=== PATIENT | male | born 1970 | race Caucasian/White ===

== ENCOUNTER → 2023-10-31 | Day surgery (SDC) | payer BC ==
[~2023-10-31] MED LIST: Flumazenil 0.1 MG/ML 10 ML MDV ONE; Ketamine 200 MG/20 ML MDV ONE; Lactated Ringers 1,000 ML IV SCH; Midazolam 1 MG/ML 2 ML SDV ONE; Propofol 200 MG/20 ML SDV ONE; fentaNYL 50 MCG/ML SDV ONE
== END ==
LOC: CC.SDS 09:35
PROVIDERS: ATTEND Family Medicine
DX: K92.1 Melena (principal); K64.4 Residual hemorrhoidal skin tags; K21.9 Gastro-esophageal reflux disease without esophagitis; I10 Essential (primary) hypertension; E78.00 Pure hypercholesterolemia, unspecified; Z79.899 Other long term (current) drug therapy; Z79.82 Long term (current) use of aspirin
CPT/HCPCS: 00811; J2250; J2704; J3010; J3490; J7120